=== PATIENT | male | born 1960 | race Caucasian/White ===

== ENCOUNTER 2018-04-02 15:40 | Emergency (ER) | payer BC ==
[~2018-04-02] VITALS: Ht 182.9 cm; Wt 104.5 kg
[2018-04-02 15:50] VITALS: BP 142/100; Ht 182.9 cm; Wt 104.5 kg
[2018-04-02] MEDS ORDERED: ASPIRIN EC81 M1 PO (15:54)
[2018-04-02] MEDS ORDERED: SYNTHROID175 MCG PO (15:54)
[2018-04-02] MEDS ORDERED: MOBIC7.5 MG PO (15:55)
[2018-04-02] MEDS ORDERED: PEPCID20 MG PO (15:56)
[2018-04-02] MEDS ORDERED: LYRICA75 MG PO (15:56)
[2018-04-02] MEDS ORDERED: CLARITIN-D1 TAB.SR1 PO (15:57)
== END 2018-04-02 17:55 | disposition home or self-care (01) ==
LOC: D.ER 15:40
DX: S01.01XA Laceration without foreign body of scalp, initial encounter (principal); W22.8XXA Striking against or struck by other objects, initial encounter; Y93.89 Activity, other specified; Y92.89 Other specified places as the place of occurrence of the external cause